=== PATIENT | female | born 1980 ===

== ENCOUNTER 2018-12-07 08:04 | Day surgery (SDC) | payer OTHER ==
[2018-12-04 10:07] VITALS: BMI 30.7
[2018-12-07] MEDS ORDERED: Propofol 10 mg/ml Inj (20 ML) ONE (09:44)
[2018-12-07] MEDS ORDERED: Lactated Ringer's 1,000 ML IV SCH (10:30)
[2018-12-07 11:12] LABS: BASO # 0.1 K/uL (0.0-0.2); BASO % 0.7 % (0.0-2.0); EOS # 0.1 K/uL (0.0-0.7); EOS % 0.9 % (0.0-4.0); LYMPH # 2.9 K/uL (1.0-4.3); LYMPH % 34.8 % (20.0-40.0); MEAN CELL VOLUME 82.9 fL (81.0-99.0); MEAN CORPUSCULAR HEMOGLOBIN 26.9 pg (27.0-31.0); MEAN CORPUSCULAR HGB CONC 32.5 g/dL (33.0-37.0); MEAN PLATELET VOLUME 7.5 fL (7.2-11.7); MONO # 0.5 K/uL (0.0-0.8); MONO % 6.3 % (0.0-10.0); NEUT # 4.8 K/uL (1.8-7.0); NEUT % 57.3 % (50.0-75.0); RBC 4.1 Mil/uL (3.80-5.20); RED CELL DISTRIBUTION WIDTH 14.2 % (11.5-14.5); WHITE BLOOD COUNT 8.4 K/uL (4.8-10.8)
[2018-12-07 11:29] LABS: ALB/GLOB RATIO 1.3 (1.0-2.1); ALBUMIN 3.7 g/dL (3.5-5.0); ALT/SGPT 23 U/L (9-52); AST/SGOT 21 U/L (14-36); BLOOD UREA NITROGEN 13 mg/dL (7-17); CALCIUM 7.7 mg/dl (8.6-10.4); GFR NON-AFRICAN AMERICAN > 60
[2018-12-07 12:26] VITALS: RESP 16; TEMP 97.7
[2018-12-07 13:03] VITALS: BP 118/67; PULSE 67; O2SAT 97
--- NOTE | 2018-12-08 06:58 | OP ---
PROCEDURE DATE: 12/07/2018 PREOPERATIVE DIAGNOSIS: A 38-year-old 2, para 2 with menometrorrhagia and pelvic disproportion. POSTOPERATIVE DIAGNOSIS: A 38-year-old 2, para 2 with menometrorrhagia and pelvic disproportion. SURGEON: Vern Neal MD. ZINC [employer]ER BLASTING: None. TYPE OF ANESTHESIA: General. ANESTHESIOLOGIST: Rohan Moctezuma MD ESTIMATED BLOOD LOSS: 50 mL. DEFICIT: . COMPLICATIONS: None. PROCEDURE: MyoSure dilatation and curettage, hysteroscopy. DESCRIPTION OF PROCEDURE: After informed consent was obtained, the patient was brought to the operating room, placed on the table where general anesthesia was given. Once the anesthesia was given, the patient was prepped and draped in a normal sterile fashion. Examination under anesthesia revealed the uterus to be 8 weeks' size. No pelvic or adnexal masses. Anterior lip of the cervix was grasped with a tenaculum, gentle dilatation of the cervix was done. There was a submucosal fibroid found on the lateral wall of the uterus. Pictures were taken, then the MyoSure was used to take out the fibroid. It was later sent to Pathology. After the procedure, it started bleeding. So on the ____ lot of pressure was put and stopped the bleeding. After that, sharp curettage of the endometrium was done, it was sent to Pathology. ____ bleeding after that. Tenaculum was taken out. The patient tolerated the procedure well. The patient ____ before she was discharged. Vern Neal MD
== END 2018-12-07 12:50 | disposition home or self-care (01) ==
LOC: C.SDS 08:04
PROVIDERS: ATTEND Obstetrics & Gynecology
DX: N92.4 Excessive bleeding in the premenopausal period (principal); N92.1 Excessive and frequent menstruation with irregular cycle
CPT/HCPCS: 36415; 58558; 80053; 85025; 88305; J2001; J2270; J2405; J2704; J3010